=== PATIENT | female | born 1990 | race Caucasian/White ===

== ENCOUNTER 2016-06-23 13:07 | Inpatient (IN) | payer OTHER ==
[2016-06-23] VITALS (14 sets, daily range): BP systolic 97–127; BP diastolic 56–87; PULSE 71–122; TEMP 97.4–98.3
[~2016-06-23] VITALS: Ht 165.1 cm; Wt 65.0 kg
[~2016-06-23 13:07] MED LIST: BCP TD
[2016-06-23 18:38] LABS: MEAN CELL VOLUME 87 fl (80.0-100.0); MEAN CORPUSCULAR HGB CONC 33 g/dl (33.0-37.0); MEAN PLATELET VOLUME 14.9 fl (7.4-10.4); PLATELET COUNT 125 K/mm3 (130-400); RED BLOOD COUNT 3.92 M/mm3 (4.10-5.30); REDCELL DISTRIBUTION WIDTH-CV 13.4 % (11.5-14.5); WHITE BLOOD COUNT 8.3 K/mm3 (4.8-10.8)
[2016-06-23 18:39] LABS: HEMATOCRIT 34.1 % (37.0-47.0); HEMOGLOBIN 11.3 g/dl (12.5-16.0); MEAN CORPUSCULAR HEMOGLOBIN 29 pg (27.0-31.0)
[2016-06-23] MEDS ORDERED: PRENATAL (20:04)
[2016-06-23] MEDS ORDERED: PREDNISONE20 MG PO (20:07)
[2016-06-24] VITALS (24 sets, daily range): BP systolic 90–138; BP diastolic 52–92; PULSE 75–114; TEMP 97.7–98.6
[2016-06-24 00:33] LABS: MEAN CELL VOLUME 88 fl (80.0-100.0); MEAN CORPUSCULAR HGB CONC 32 g/dl (33.0-37.0); MEAN PLATELET VOLUME 14.4 fl (7.4-10.4); PLATELET COUNT 117 K/mm3 (130-400); RED BLOOD COUNT 3.84 M/mm3 (4.10-5.30); REDCELL DISTRIBUTION WIDTH-CV 13.5 % (11.5-14.5); WHITE BLOOD COUNT 7.9 K/mm3 (4.8-10.8)
[2016-06-24 00:34] LABS: HEMATOCRIT 33.6 % (37.0-47.0); HEMOGLOBIN 10.9 g/dl (12.5-16.0); MEAN CORPUSCULAR HEMOGLOBIN 28 pg (27.0-31.0)
[2016-06-25 01:35] VITALS: BP 101/57; PULSE 60; TEMP 98.5
[2016-06-25 08:11] VITALS: BP 106/57; PULSE 77; TEMP 97.6
[2016-06-25] MEDS ORDERED: IBU800 M1 PO (10:08)
== END 2016-06-25 11:17 | disposition home or self-care (01) | DRG 775 ==
LOC: LDR 13:07 → OB 17:47 → LDRO 07-01 11:34 → EDSTATUS 07-01 13:05
PROVIDERS: Obstetrics & Gynecology
PROC: 10E0XZZ Delivery of Products of Conception, External Approach (ICD-10-PCS; principal; 2016-06-24)
PROC: 3E033VJ Introduction of Other Hormone into Peripheral Vein, Percutaneous Approach (ICD-10-PCS; 2016-06-24)
DX: O99.12 Other diseases of the blood and blood-forming organs and certain disorders involving the immune mechanism complicating childbirth (principal); D69.6 Thrombocytopenia, unspecified; Z3A.38 38 weeks gestation of pregnancy; Z37.0 Single live birth
CPT/HCPCS: J1720; J2590; J7120

== ENCOUNTER 2021-11-08 23:04 | Inpatient (IN) | payer OTHER ==
[~2021-11-08] VITALS: Ht 165.1 cm; Wt 66.4 kg
[~2021-11-08 23:04] MED LIST changes: +IBU800 M1 PO; +MOTRIN 600600 MG/TAB PO; +PERCOCET 325 MG1 TA2 PO; +PREDNISONE20 MG PO; +PRENATAL
--- NOTE | 2021-11-08 23:10 | NUR ---
537334.5 G4L3 arrives on unit with c/o srom at 1400, and regular ctx. Denies any VB. Reports normal movement. Ambulatory to LDR4. Oriented to room and plan of care. [id number] explained and placed. VS obtained. Assessment completed. 2320SVE 4-5//-2, amnitest negative. BOW palpated. No fluid noted to glove with SVE. Ctx palpate mild to moderate. Plan of care discussed with pt. 234Cielo Manzano updated on pt. See physician notification.
[2021-11-08 23:30] VITALS: BP 121/82; PULSE 106; TEMP 98.6
[2021-11-09] VITALS (36 sets, daily range): BP systolic 95–122; BP diastolic 57–80; PULSE 72–130; TEMP 97.5–98.7
--- NOTE | 2021-11-09 00:05 | NUR ---
0005Plan of care reviewed with pt and spouse who verbalize understanding. IV to left FA. Routine labs obtained. Pt requsting epidural. 0015LR bolus infusing. Consent forms explained and signed. Report to Violeta Medeiros RN who assumes care of pt.
[2021-11-09 00:13] LABS: HEMOGLOBIN 10.3 g/dl (12.5-16.0); MEAN CELL VOLUME 84 fl (80.0-100.0); MEAN CORPUSCULAR HEMOGLOBIN 28 pg (27-31); MEAN CORPUSCULAR HGB CONC 33 g/dl (33.0-37.0); MEAN PLATELET VOLUME 13.5 fl (7.4-10.4); PLATELET COUNT 134 K/mm3 (130-400); RED BLOOD COUNT 3.75 M/mm3 (4.10-5.30); REDCELL DISTRIBUTION WIDTH-CV 13.9 % (11.5-14.5)
[2021-11-09 00:16] LABS: HEMATOCRIT 31.6 % (37.0-47.0)
[2021-11-09 00:36] LABS: HYPOCHROMIA 1+; LYMPHOCYTE 24 % (20.0-51.0); NEUTROPHILS 70 % (42.0-75.2); PLATELET ESTIMATE NORMAL (NORMAL)
--- NOTE | 2021-11-09 00:50 | NUR ---
0050 SITTING ON SIDE OF BED FOR EPID PLACEMENT. SEE ANESTHSIA RECORD FOR MORE INFORMATION.
--- NOTE | 2021-11-09 06:28 | NUR ---
here for delivery. Note room set up for delivery prior to his arrival. Carlee Le RN, nursery nurse, notified to come for delivery.
--- NOTE | 2021-11-09 06:33 | NUR ---
0633-First push attempt with instruction.
--- NOTE | 2021-11-09 06:37 | NUR ---
0637-Spontaneous vaginal delivery of head by . Shoulder dystocia announced. Head of bed flat, followed by McRobert's maneuver. Suprapubic pressure applied under direction of by this securities underwriter. Note shoulder dystocia 1 minute in duration. Note patient spouse, this securities underwriter, , and Alana, RN, nursery nurse in room for delivery. 0638-Vaginal delivery of male infant by . 0640-Spontaneous vaginal delivery of placenta by . Pit bolus begun @ 333mU/min immediately following. 0641-Red valeriy catheter by , estimated 50 mL urine return.
--- NOTE | 2021-11-09 09:35 | NUR ---
Assisted out of bed, and up to BR for first time post delivery. Steady gait noted. Denies any lightheadedness, dizziness, or nausea. Spontaneous void of 550 mL noted. Bony care provided, as well as mesh underwear, bony pad, ice pack. Patient changes into own clothing. Bed linen change completed at this time. Requests to wait in current room for awhile to see if PP double bed opens up soon.
[2021-11-10 01:00] VITALS: BP 95/62; PULSE 93; TEMP 98.1
[2021-11-10 07:00] VITALS: BP 98/62; PULSE 89; TEMP 97.7
[2021-11-10 07:36] LABS: HEMOGLOBIN 10.5 g/dl (12.5-16.0)
[2021-11-10 07:38] LABS: HEMATOCRIT 32.5 % (37.0-47.0)
[2021-11-10] MEDS ORDERED: IBU600 MG PO (09:25)
--- NOTE | 2021-11-10 10:21 | NUR ---
DISCHARGE TEACHING COMPLETED. EDUCATED ON FOLLOW UP APPOINTMENT AND PRESCRIPTIONS. QUESTIONS INVITED AND ANSWERED.
--- NOTE | 2021-11-10 10:25 | NUR ---
Initial visit attempt; Nurse with patient who is preparing to be discharged. House Visitor left card of congratulations for the of their son and information regarding the availability of Spiritual Care at our hospital.
== END 2021-11-10 10:35 | disposition home or self-care (01) | DRG 807 ==
LOC: LDRO 23:04 → LDR 23:55 → OB 11-09 13:00
PROVIDERS: Obstetrics & Gynecology; ADMIT Obstetrics & Gynecology
PROC: 10E0XZZ Delivery of Products of Conception, External Approach (ICD-10-PCS; principal; 2021-11-09)
DX: O99.02 Anemia complicating childbirth (principal); Z37.0 Single live birth; O43.123 Velamentous insertion of umbilical cord, third trimester; D64.9 Anemia, unspecified; O66.0 Obstructed labor due to shoulder dystocia; Z3A.40 40 weeks gestation of pregnancy
CPT/HCPCS: J2590; J7120